=== PATIENT | female | born 1985 | race Caucasian/White ===

== ENCOUNTER 2016-06-11 22:09 | Emergency (ER) | payer MEDICAID ==
[2016-06-11 22:14] VITALS: RESP 16
--- NOTE | 2016-06-11 22:34 | EDPHY ---
H & P Stated Complaint: rib pain bilaterally for 2 weeks Time Seen by Provider: 06/11/16 22:18 HPI/ROS: Chief complaint: Back pain and rib pain HPI: 30 year female presenting with 2 weeks of pain in her bilateral ribs in her back, right greater than left. 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 She states she has had 36 days at this time and is not seem to be getting better. Pain is somewhat worse with deep inspiration. Has been taking ibuprofen and some Vicodin without significant relief. She is also applying icy Hot, ice and heat. No shortness of breath. No cough. No fevers or chills. No nausea vomiting abdominal pain. She does not smoke. She is not on oral contraceptives. No recent travel or periods of immobility. ROS: 10 point Review of Systems is negative except as noted in the HPI. Past medical history: Depression Medications: None Allergies: Amoxicillin and Ceclor Social history: Does not smoke, drinks occasional alcohol, no other recreational drug use Physical exam: Gen: Awake, Alert, No Distress HEENT: Nose: no rhinorrhea Eyes: PERRLA, EOMI Mouth: Moist mucosa Neck: Supple, no JVD Chest: She has pain tenderness in the right inferomedial scapular region of her right back. This does reproduce somewhat her presenting complaint, lungs clear to auscultation Heart: S1, S2 normal, no murmur Abd: Soft, non-tender, no guarding Back: no CVA tenderness, no midline tenderness Ext: no edema, non-tender Skin: no rash Neuro: CN II-XII intact, Sensation grossly intact, Strength 5/5 in bilateral upper and lower extremities - Personal History LMP (Females 10-55): IUD In Place Current Tetanus/Diphtheria Vaccine: Unsure Current Tetanus Diphtheria and Acellular Pertussis (TDAP): Unsure - Medical/Surgical History Hx Asthma: No Hx Chronic Respiratory Disease: No Hx Diabetes: No Hx Cardiac Disease: No Hx Renal Disease: No Hx Cirrhosis: No Hx Alcoholism: No Hx HIV/AIDS: No Hx Splenectomy or Spleen Trauma: No Other PMH: depression, anxiety - Social History Smoking Status: Never smoked Constitutional: Initial Vital Signs Temperature (C) 37.2 C 06/11/16 22:12 Heart Rate 100 03/14/17 22:12 Respiratory Rate 16 06/11/16 22:12 Blood Pressure 119/72 06/11/16 22:12 O2 Sat (%) 94 06/11/16 22:12 O2 Delivery Mode Room Air Allergies/Adverse Reactions: amoxicillin Allergy (Verified 06/11/16 22:16) cefaclor [From Ceclor] Allergy (Verified 06/11/16 22:16) Home Medications: Medication Instructions Recorded NK [No Known Home Meds] 06/11/16 Medical Decision Making - Diagnostics Imaging: Chest x-ray: Normal per Dr. Joaquin Frias. ED Course/Re-evaluation: 30-year-old female presenting with 2-3 weeks of back pain which is somewhat pleuritic. Patient also also mildly tachycardic and mildly hypoxemic here. Will check a D-dimer in addition a chest x-ray and other blood work to rule out intrathoracic pathology or PE. - Data Points Laboratory Results: Laboratory Results 06/11/16 22:35 06/11/16 22:35 06/11/16 06/11/16 06/11/16 22:35 22:35 22:35 WBC RBC Hgb Hct MCV MCH MCHC RDW Plt Count MPV Neut % (Auto) Lymph % (Auto) [place] % (Auto) Eos % (Auto) Baso % (Auto) Nucleat RBC Rel Count Absolute Neuts (auto) Absolute Lymphs (auto) Absolute Monos (auto) Absolute Eos (auto) Absolute Basos (auto) Absolute Nucleated RBC Immature Gran % Immature Gran # D-Dimer < 0.27 ug/mLFEU ug/mLFEU (0.00-0.50) Sodium 136 mEq/L mEq/L (134-144) Potassium 4.0 mEq/L mEq/L (3.5-5.2) Chloride 104 mEq/L mEq/L (97-110) Carbon Dioxide 23 mEq/l mEq/l (22-31) Anion Gap 9 mEq/L mEq/L (8-16) BUN 14 mg/dL mg/dL (7-23) Creatinine 0.7 mg/dL mg/dL (0.6-1.0) Estimated GFR > 60 Glucose 81 mg/dL mg/dL (70-100) Calcium 9.4 mg/dL mg/dL (8.5-10.4) Beta HCG, Qual NEGATIVE 06/11/16 22:35 WBC 8.52 10^3/uL 10^3/uL (3.80-9.50) RBC 4.90 10^6/uL 10^6/uL (4.18-5.33) Hgb 14.7 g/dL g/dL (12.6-16.3) Hct 43.1 % % (38.0-47.0) MCV 88.0 fL fL (81.5-99.8) MCH 30.0 pg pg (27.9-34.1) MCHC 34.1 g/dL g/dL (32.4-36.7) RDW 12.8 % % (11.5-15.2) Plt Count 175 10^3/uL 10^3/uL (150-400) MPV 11.9 fL H fL (8.7-11.7) Neut % (Auto) 56.0 % % (39.3-74.2) Lymph % (Auto) 35.6 % % (15.0-45.0) [place] % (Auto) 5.6 % % (4.5-13.0) Eos % (Auto) 1.9 % % (0.6-7.6) Baso % (Auto) 0.7 % % (0.3-1.7) Nucleat RBC Rel Count 0.0 % % (0.0-0.2) Absolute Neuts (auto) 4.77 10^3/uL 10^3/uL (1.70-6.50) Absolute Lymphs (auto) 3.03 10^3/uL H 10^3/uL (1.00-3.00) Absolute Monos (auto) 0.48 10^3/uL 10^3/uL (0.30-0.80) Absolute Eos (auto) 0.16 10^3/uL 10^3/uL (0.03-0.40) Absolute Basos (auto) 0.06 10^3/uL 10^3/uL (0.02-0.10) Absolute Nucleated RBC 0.00 10^3/uL 10^3/uL (0-0.01) Immature Gran % 0.2 % % (0.0-1.1) Immature Gran # 0.02 10^3/uL 10^3/uL (0.00-0.10) D-Dimer Sodium Potassium Chloride Carbon Dioxide Anion Gap BUN Creatinine Estimated GFR Glucose Calcium Beta HCG, Qual Medications Given: Discontinued Medications Sodium Chloride (Ns) 1,000 mls @ 0 mls/hr IV ONCE ONE PRN Reason: Wide Open Stop: 06/11/16 22:46 Last Admin: 06/11/16 22:46 Dose: 1,000 mls Departure - Departure Disposition: Home, Routine, Self-Care Clinical Impression: Back pain Condition: Good Instructions: Back Pain (ED) Additional Instructions: Continue taking ibuprofen, apply ice and heat alternating. Follow up with primary care in 3-4 days if symptoms are not improving. Referrals: NONE *PRIMARY CARE P,. [Primary Care Provider] - As per Instructions Jacey Humphries MD [Medical Doctor] - As per Instructions
[2016-06-11] MEDS ORDERED: NS 1,000 ML IV ONE (22:45)
[2016-06-11 22:49] LABS: % IMMATURE GRANULYOCYTES 0.2 % (0.0-1.1); ABSOLUTE IMMATURE GRANULOCYTES 0.02 10^3/uL (0.00-0.10); ADD DIFF? NO; ADD MORPH? NO; ADD SCAN? NO; ATYPICAL LYMPHOCYTE FLAG 10 (0-99); FRAGMENT RBC FLAG 0 (0-99); HEMATOCRIT 43.1 % (38.0-47.0); HEMOGLOBIN 14.7 g/dL (12.6-16.3); LEFT SHIFT FLG 0 (0-99); LIPEMIA HEMOLYSIS FLAG 90 (0-99); MEAN CELL HEMOGLOBIN CONCENTR. 34.1 g/dL (32.4-36.7); MEAN PLATELET VOLUME 11.9 fL (8.7-11.7); PLATELET CLUMPS FLAG 0 (0-99); PLATELET COUNT 175 10^3/uL (150-400); RED CELL DISTRIBUTION WIDTH 12.8 % (11.5-15.2)
[2016-06-11 22:57] LABS: ANION GAP 9 mEq/L (8-16); CALCIUM 9.4 mg/dL (8.5-10.4); CARBON DIOXIDE 23 mEq/l (22-31); CHLORIDE 104 mEq/L (97-110); CREATININE 0.7 mg/dL (0.6-1.0); GLOMERULAR FILTRATION RATE > 60; GLUCOSE 81 mg/dL (70-100); SODIUM 136 mEq/L (134-144)
[2016-06-11 23:49] VITALS: BP 124/74; PULSE 80; TEMP 98.2; O2SAT 96
== END 2016-06-11 23:49 | disposition home or self-care (01) ==
DX: M54.9 Dorsalgia, unspecified (principal)

== ENCOUNTER 2016-09-21 10:09 | Emergency (ER) | payer MEDICAID ==
[2016-09-21 10:16] VITALS: O2SAT 98
--- NOTE | 2016-09-21 10:55 | EDPHY ---
H & P Smoking Status: Never smoked Time Seen by Provider: 09/21/16 10:39 HPI/ROS: CHIEF COMPLAINT: Sore throat swollen lymph nodes HISTORY OF PRESENT ILLNESS: This is a 30-year-old female presenting to the emergency department complaining of sore throat times a week and half, increase in throat pain with swollen lymph nodes over the past couple days. Has not taken [id number] medication, reports her roommate has been sick for several weeks now. Denies any fever, nausea vomiting REVIEW OF SYSTEMS: Constitutional: No fever. chills. No changes in PO intake Eyes: No discharge. ENT: sore throat. Swollen lymph nodes Cardiovascular: No chest pain, no palpitations. Respiratory: No cough, no shortness of breath. Gastrointestinal: No abdominal pain, no vomiting. Genitourinary: No hematuria. Musculoskeletal: No back pain. Skin: No rashes. Neurological: No headache. (April Baptiste) Physical Exam: General Appearance: Alert and no distress. HEENT: Pupils equal and round no injection. TMs normal bilaterally. Tonsillar hypertrophy, erythema noted with exudate. Uvula midline. No drooling no trismus no mastoiditis Respiratory: Chest is nontender, lungs are clear to auscultation. Cardiac: regular rate and rhythm Gastrointestinal: Abdomen is soft and nontender, no masses, bowel sounds normal. Musculoskeletal: Neck is supple, cervical lymphadenopathy tender on palpation Extremities have full range of motion and are nontender. Skin: No rashes or lesions. (April Baptiste) Constitutional: Initial Vital Signs Temperature (C) 36.7 C 09/21/16 10:13 Heart Rate 85 09/21/16 10:13 Respiratory Rate 15 09/21/16 10:13 Blood Pressure 116/82 H 09/21/16 10:13 O2 Sat (%) 98 09/21/16 10:13 O2 Delivery Mode Room Air Allergies/Adverse Reactions: amoxicillin Allergy (Verified 06/11/16 22:16) cefaclor [From Ceclor] Allergy (Verified 06/11/16 22:16) Home Medications: Medication Instructions Recorded AZITHROMYCIN [Z-PACK] 250 mg PO DAILY #6 tab 09/21/16 Medical Decision Making ED Course/Re-evaluation: Discussed ED plan of care: Rapid strep sent 1130: Negative strep 1145: Discharge home---> stable, discussed all discharge instructions with patient (April Baptiste) Differential Diagnosis: Other differential diagnosis considered but not limited to strep, tonsillar abscess, and uvulitis (April Baptiste) Other Provider: [id number]: Assessed patient in conjunction with BRENNA Baptiste. This is a 30 y/o female complaining of a sore throat for the last glap-wve-r-half. She has no rhinorrhea and is afebrile. On exam, she has posterior and anterior cervical lymphadenopathy and pharyngeal erythema with edema worse on the right. Plan to treat as bacterial pharyngitis or possible mono with steroids and antibiotics. (Kvng Lo) - Data Points Laboratory Results: 09/21/16 09/21/16 Unknown 10:24 Group A Strep Screen NEGATIVE (NEGATIVE) Group A Strep DNA Pending Medications Given: Discontinued Medications Dexamethasone (Decadron) 10 mg PO EDNOW ONE Stop: 09/21/16 11:15 Last Admin: 09/21/16 11:22 Dose: 10 mg Departure - Departure Disposition: Home, Routine, Self-Care Clinical Impression: Pharyngitis, acute Qualifiers: Pharyngitis/tonsillitis etiology: other specified organisms Qualified Code(s): J02.8 - Acute pharyngitis due to other specified organisms Condition: Good Instructions: Pharyngitis (ED) Additional Instructions: 1. Hot tea with lemon and honey. He can also gargle with warm salt water several times a day 2. Take all antibiotics as prescribed 3. Ibuprofen 600 mg every 6-8 hours as needed 4. I have given you numbers for primary care follow-up as needed 5. Handwashing to prevent the spread of germs and viruses. No sharing water bottles glasses or kitchen utensils to symptoms have resolved Referrals: NONE *PRIMARY CARE P,. [Primary Care Provider] - As per Instructions [facility],. [Clinic] - As per Instructions Darius Stone MD [Medical Doctor] - As per Instructions Prescriptions: AZITHROMYCIN [Z-PACK] 250 mg PO DAILY #6 tab
[2016-09-21] MEDS ORDERED: DEXAMETHASONE 4 MG TAB PO ONE (11:14)
[2016-09-21 12:06] VITALS: BP 118/80; PULSE 79; RESP 16; TEMP 97.9
== END 2016-09-21 12:06 | disposition home or self-care (01) ==
DX: J02.9 Acute pharyngitis, unspecified (principal)

== ENCOUNTER 2017-01-20 18:46 | Emergency (ER) | payer MEDICAID ==
[2017-01-20 18:51] VITALS: BP 124/76; PULSE 89; RESP 16; TEMP 97.7; O2SAT 99
--- NOTE | 2017-01-20 19:28 | EDPHY ---
H & P Stated Complaint: Injury to right knee 1 week ago. Still has pain. Time Seen by Provider: 01/20/17 19:25 HPI/ROS: HPI: This is a 31-year-old female presents with Chief Complaint: Right knee injury Location: Right medial knee Quality: Aching pain Duration: 1 week Signs and Symptoms: No swelling, no radiation, no numbness, no weakness, no tingling, no redness, no decreased range of motion Timing: Gradual onset Severity: Moderate Context: Patient reports approximately 1 week ago her cat jumped up on the desk , knocking off her lap top, which landed directly onto her knee, medial portion , with immediate pain that slowly resolved after a few minutes. 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 Today while in movement class, she started to experience medial knee pain that worsened with squatting/jumping/ twisting movements. Modifying Factors: Has tried no evnj-gcv-ypryoow medications Comment: ROS: see HPI Constitutional: No fever, no chills, no weight loss Eyes: No blurred vision Respiratory: No shortness of breath, no cough Cardiovascular: No chest pain Gastrointestinal: No nausea, no vomiting no diarrhea Genitourinary: No dysuria Extremities: No myalgias Neurologic: No weakness, no numbness Skin: No rashes Hematologic: No bruising, no bleeding MEDICAL/SURGICAL/SOCIAL HISTORY: Medical history: Depression anxiety. Surgical history: Denies Social history: Currently in school CONSTITUTIONAL: Pleasant cooperative adult white female, awake and alert, no obvious distress HEENT: Atraumatic and normocephalic, PERRL, EOMI. Tympanic membranes clear. Oropharynx clear, no exudate and moist pink mucosa. Airway patent. No lymphadenopathy. No meningismus. Cardiovascular: Normal S1/S2, regular rate, regular rhythm, without murmur rub or gallop. PULMONARY/CHEST: Symmetrical and nontender. Clear to auscultation bilaterally. Good air movement. No accessory muscle usage. ABDOMEN: Soft, nondistended, nontender, no rebound, no guarding, no peritoneal signs, no masses or organomegaly. No CVAT. EXTREMITIES: 2/2 pulses, RIGHT KNEE: Mild effusion, medial and lateral joint line tenderness, full extension to 180, flexion to 120, no pain with varus and valgus exam. No pain with anterior drawer or posterior drawer test. no deformities, no clubbing, no cyanosis or edema. No calf tenderness. Achilles intact. NEUROLOGICAL: no focal neuro deficits. GCS 15. SKIN: Warm and dry, no erythema. no rash. Good capillary refill. Source: Patient Exam Limitations: No limitations - Personal History Current Tetanus Diphtheria and Acellular Pertussis (TDAP): Yes - Medical/Surgical History Hx Asthma: No Hx Chronic Respiratory Disease: No Hx Diabetes: No Hx Cardiac Disease: No Hx Renal Disease: No Hx Cirrhosis: No Hx Alcoholism: No Hx HIV/AIDS: No Hx Splenectomy or Spleen Trauma: No Other PMH: depression, anxiety - Social History Smoking Status: Never smoked Constitutional: Initial Vital Signs Temperature (C) 36.5 C 01/20/17 18:46 Heart Rate 89 01/20/17 18:46 Respiratory Rate 16 01/20/17 18:46 Blood Pressure 124/76 H 01/20/17 18:46 O2 Sat (%) 99 01/20/17 18:46 O2 Delivery Mode Room Air Allergies/Adverse Reactions: amoxicillin Allergy (Verified 06/11/16 22:16) cefaclor [From Ceclor] Allergy (Verified 06/11/16 22:16) Home Medications: Medication Instructions Recorded NK [No Known Home Meds] 01/20/17 Medical Decision Making ED Course/Re-evaluation: X-rays ordered No signs of neurovascular compromise/tenting of skin/compartment syndrome/ extremities and joints examined above and below area of concern and are neurovascularly intact. X-ray via my read shows no fracture/dislocation Suspect meniscus/ligament injury. Placed in knee immobilizer and given crutches Advised rice therapy, weight-bearing as tolerated and follow up with Orthopedics Differential Diagnosis: Knee injury while [] including but not limited to fracture, ACL injury, contusion, muscular strain, and meniscus injury. Departure - Departure Disposition: Home, Routine, Self-Care Clinical Impression: Injury of right knee Qualifiers: Encounter type: initial encounter Qualified Code(s): S89.91XA - Unspecified injury of right lower leg, initial encounter Internal derangement of knee Qualifiers: Laterality: right Qualified Code(s): M23.91 - Unspecified internal derangement of right knee Condition: Good Instructions: Knee Sprain (ED), Knee Immobilizer (ED) Additional Instructions: Wear knee immobilizer, weight-bearing as tolerated and use crutches until pain free. Take ibuprofen 600-800 mg every 6-8 hours with food as needed for pain and inflammation. Apply ice for 30 minutes at a time; 2-3 times per day for the next 1-2 days. Follow up with Orthopedics in 7-10 days if pain persists at which time they will evaluate and recommend with you if conservative management versus further diagnostic imaging like an MRI is indicated. The x-rays obtained in the emergency department today demonstrate no evidence of an obvious fracture. Sometimes fractures are not obvious on the initial set of x-rays performed in the ED. For this reason, you should have repeat x-rays performed in 7-10 days if you are having any pain exclude the possibility of an occult fracture. Referrals: YONY Martines [Other] - As per Instructions Alec De La Cruz MD [Medical Doctor] - As per Instructions
== END 2017-01-20 20:33 | disposition home or self-care (01) ==
DX: M23.91 Unspecified internal derangement of right knee (principal); W55.09XA Other contact with cat, initial encounter; Y99.8 Other external cause status
CPT/HCPCS: L1830

== ENCOUNTER 2017-01-29 16:24 | Emergency (ER) | payer MEDICAID ==
[2017-01-29 16:35] VITALS: TEMP 98.4
[2017-01-29] MEDS ORDERED: NS 500 ML IV ONE (17:01)
--- NOTE | 2017-01-29 17:06 | EDPHY ---
H & P Time Seen by Provider: 01/29/17 16:47 HPI/ROS: CHIEF COMPLAINT: Difficulty concentrating HISTORY OF PRESENT ILLNESS: Patient is a 31-year-old female who presents emergency department with difficulty concentrating and thought issues. Patient states she underwent colposcopy on Friday morning. She came home and took a nap. She then felt as though she was slightly slow cognitively. She had difficulty concentrating. She states that is persisted throughout the week. She had an exercise in class where she was unable to identify sentence structure. This is atypical. Patient denies any focal symptoms. No weakness or numbness. No headache. No chest pain, cough or shortness of breath. No abdominal pain. No nausea or vomiting. No dysuria or frequency. Patient states her discomfort from the colposcopy had resolved and she has had no vaginal discharge. REVIEW OF SYSTEMS: My complete review of systems is negative except as mentioned in the HPI. Past Medical/Surgical History: Depression, anxiety, TMJ, carpal tunnel syndrome, PTSD, IUD in place Social history: The patient uses marijuana regularly. She uses Benadryl for sleep. Smoking Status: Never smoked Physical Exam: Vitals noted. Afebrile GENERAL: Well-appearing, in no acute distress, alert. HEENT: Eyes normal to inspection, normal pharynx, no signs of dehydration. NECK: No thyromegaly, no lymphadenopathy, supple. RESPIRATORY: Clear to auscultation bilaterally, no rales, rhonchi or wheezing. CVS: Regular rate and rhythm, no rubs, murmurs, or gallops. ABDOMEN: Soft, nontender, nondistended, no organomegaly. BACK: Normal to inspection, no CVA tenderness. SKIN: Normal color, no rash, warm, dry. No pallor. EXTREMITIES: No pedal edema, no calf tenderness, no Homans sign or cords, no joint swelling. NEURO/PSYCH: Higher functions: Alert and Oriented x3. Normal speech and cognition. Normal mood and affect. Cranial nerves: Normal as tested. Cerebellar: Normal as tested. Good finger to nose, good [id number], normal gait. Peripheral exam: Normal motor exam. Normal sensation. Constitutional: Initial Vital Signs Temperature (C) 36.9 C 01/29/17 16:31 Heart Rate 95 01/29/17 16:31 Respiratory Rate 18 01/29/17 16:31 Blood Pressure 125/76 H 01/29/17 16:31 O2 Sat (%) 98 01/29/17 16:31 O2 Delivery Mode Room Air Allergies/Adverse Reactions: amoxicillin Allergy (Verified 06/11/16 22:16) cefaclor [From Ceclor] Allergy (Verified 06/11/16 22:16) Home Medications: Medication Instructions Recorded NK [No Known Home Meds] 01/20/17 Medical Decision Making ED Course/Re-evaluation: In the emergency department I discussed possible etiologies with the patient. I answered all her questions. IV was placed. Laboratory studies were obtained. The patient's CBC, chemistry and urine were negative. was negative. I rechecked the patient while here. She had no new complaints. Patient was given warnings prior to leaving. She will follow up with Neurology. Differential Diagnosis: My differential includes but is not limited to electrolyte abnormality, sugar abnormality, anemia, CVA, bacteremia, sepsis - Data Points Laboratory Results: Laboratory Results 01/29/17 17:10 01/29/17 17:10 01/29/17 01/29/17 01/29/17 17:10 17:10 17:10 WBC 8.86 10^3/uL 10^3/uL (3.80-9.50) RBC 4.78 10^6/uL 10^6/uL (4.18-5.33) Hgb 14.5 g/dL g/dL (12.6-16.3) Hct 41.7 % % (38.0-47.0) MCV 87.2 fL fL (81.5-99.8) MCH 30.3 pg pg (27.9-34.1) MCHC 34.8 g/dL g/dL (32.4-36.7) RDW 12.7 % % (11.5-15.2) Plt Count 181 10^3/uL 10^3/uL (150-400) MPV 12.2 fL H fL (8.7-11.7) Neut % (Auto) 59.9 % % (39.3-74.2) Lymph % (Auto) 30.7 % % (15.0-45.0) [place] % (Auto) 6.7 % % (4.5-13.0) Eos % (Auto) 1.6 % % (0.6-7.6) Baso % (Auto) 0.8 % % (0.3-1.7) Nucleat RBC Rel Count 0.0 % % (0.0-0.2) Absolute Neuts (auto) 5.31 10^3/uL 10^3/uL (1.70-6.50) Absolute Lymphs (auto) 2.72 10^3/uL 10^3/uL (1.00-3.00) Absolute Monos (auto) 0.59 10^3/uL 10^3/uL (0.30-0.80) Absolute Eos (auto) 0.14 10^3/uL 10^3/uL (0.03-0.40) Absolute Basos (auto) 0.07 10^3/uL 10^3/uL (0.02-0.10) Absolute Nucleated RBC 0.00 10^3/uL 10^3/uL (0-0.01) Immature Gran % 0.3 % % (0.0-1.1) Immature Gran # 0.03 10^3/uL 10^3/uL (0.00-0.10) Sodium 142 mEq/L mEq/L (134-144) Potassium 3.7 mEq/L mEq/L (3.5-5.2) Chloride 105 mEq/L mEq/L (97-110) Carbon Dioxide 25 mEq/l mEq/l (22-31) Anion Gap 12 mEq/L mEq/L (8-16) BUN 11 mg/dL mg/dL (7-23) Creatinine 0.8 mg/dL mg/dL (0.6-1.0) Estimated GFR > 60 Glucose 82 mg/dL mg/dL (70-100) Calcium 9.6 mg/dL mg/dL (8.5-10.4) Total Bilirubin 0.4 mg/dL mg/dL (0.1-1.4) Conjugated Bilirubin 0.1 mg/dL mg/dL (0.0-0.5) Unconjugated Bilirubin 0.3 mg/dL mg/dL (0.0-1.1) AST 15 IU/L IU/L (14-46) ALT 34 IU/L IU/L (9-52) Alkaline Phosphatase 47 IU/L IU/L (38-126) Total Protein 6.8 g/dL g/dL (6.3-8.2) Albumin 3.8 g/dL g/dL (3.5-5.0) Lipase 135 IU/L IU/L (23-300) Beta HCG, Qual NEGATIVE Urine Color Urine Appearance Urine pH Ur Specific [place] Urine Protein Urine Ketones Urine Blood Urine Nitrate Urine Bilirubin Urine Urobilinogen Ur Leukocyte Esterase Urine Glucose 01/29/17 17:05 WBC RBC Hgb Hct MCV MCH MCHC RDW Plt Count MPV Neut % (Auto) Lymph % (Auto) [place] % (Auto) Eos % (Auto) Baso % (Auto) Nucleat RBC Rel Count Absolute Neuts (auto) Absolute Lymphs (auto) Absolute Monos (auto) Absolute Eos (auto) Absolute Basos (auto) Absolute Nucleated RBC Immature Gran % Immature Gran # Sodium Potassium Chloride Carbon Dioxide Anion Gap BUN Creatinine Estimated GFR Glucose Calcium Total Bilirubin Conjugated Bilirubin Unconjugated Bilirubin AST ALT Alkaline Phosphatase Total Protein Albumin Lipase Beta HCG, Qual Urine Color YELLOW Urine Appearance CLEAR Urine pH 6.0 (5.0-7.5) Ur Specific [place] 1.010 (1.002-1.030) Urine Protein NEGATIVE (NEGATIVE) Urine Ketones NEGATIVE (NEGATIVE) Urine Blood NEGATIVE (NEGATIVE) Urine Nitrate NEGATIVE (NEGATIVE) Urine Bilirubin NEGATIVE (NEGATIVE) Urine Urobilinogen NEGATIVE EU EU (0.2-1.0) Ur Leukocyte Esterase NEGATIVE (NEGATIVE) Urine Glucose NEGATIVE (NEGATIVE) Medications Given: Discontinued Medications Sodium Chloride (Ns) 500 mls @ 0 mls/hr IV EDNOW ONE; Wide Open PRN Reason: Protocol Stop: 01/29/17 17:02 Last Admin: 01/29/17 17:20 Dose: 500 mls Departure - Departure Disposition: Home, Routine, Self-Care Clinical Impression: Concentration deficit, Poor concentration Condition: Good Instructions: Altered Mental Status (ED) Additional Instructions: Your laboratory studies were normal. Return with worsening mental status changes, headache, fever, or any other concerns. Referrals: Kristina Calabrese [Primary Care Provider] - 2-3 days, if not improved Zaheer Wen MD [Medical Doctor] - 5-7 days, call for appt.
[2017-01-29 17:27] LABS: PLATELET COUNT 181 10^3/uL (150-400)
[2017-01-29 18:28] VITALS: BP 118/74; PULSE 84; RESP 16; O2SAT 99
== END 2017-01-29 18:34 | disposition home or self-care (01) ==
DX: R41.840 Attention and concentration deficit (principal); E86.9 Volume depletion, unspecified

== ENCOUNTER → 2018-09-16 | Outpatient (CLI) | payer OTHER | LOC: BMCIMAGING 08:24 ==